=== PATIENT | male | born 1975 | race Two or more races ===

== ENCOUNTER 2023-01-14 21:40 | Emergency (ER) | payer MEDICAID, OTHER ==
[~2023-01-14] VITALS: Ht 167.6 cm; Wt 95.7 kg
[2023-01-14 23:29] LABS: Urine Bacteria NONE SEEN /hpf (None Seen); Urine Blood Negative /uL (Negative); Urine Specific Gravity 1.027 (1.001-1.035); Urine WBC 1 /hpf (0 - 3)
[2023-01-15 01:56] VITALS: BP 136/73
[2023-01-15] MEDS ORDERED: BACIOIN15 TOP (02:08)
[2023-01-15] MEDS ORDERED: CEPH-510 PO (02:08)
[2023-01-15] MEDS ORDERED: cefTRIAXone SOD 1,000 MG VL IM ONE (02:15)
== END 2023-01-15 03:05 | disposition home or self-care (01) ==
LOC: ER 21:47
DX: N47.6 Balanoposthitis (principal); Z88.0 Allergy status to penicillin
CPT/HCPCS: 81001

== ENCOUNTER 2023-03-14 19:46 | Emergency (ER) | payer MEDICAID ==
[~2023-03-14] VITALS: Ht 165.1 cm; Wt 90.4 kg
[~2023-03-14 19:46] MED LIST: BACIOIN15 TOP; CEPH-510 PO
[2023-03-14 21:23] LABS: Albumin 3.8 g/dL (3.4-5.0); Calcium 8.4 mg/dL (8.5-10.1); Potassium 3.9 mmol/L (3.5-5.1)
[2023-03-14 21:28] LABS: BUN/Creatinine Ratio 13.9 (10.0-20.0); Bilirubin, Total 0.9 mg/dL (0.2-1.0); Total Protein 7.8 g/dL (6.4-8.2)
[2023-03-14 21:39] LABS: Urine Bacteria NONE SEEN /hpf (None Seen); Urine Blood Negative /uL (Negative); Urine Mucus FEW (None Seen); Urine Specific Gravity 1.036 (1.001-1.035); Urine WBC 94 /hpf (0 - 3)
[2023-03-14 21:43] LABS: Basophils # (auto) 0.1 10 ^3/uL (0-0.2); Basophils % (auto) 0.3 % (0.0-2.0); Eosinophils # (auto) 0.1 10 ^3/uL (0-0.8); Eosinophils % (auto) 0.8 % (0.0-7.0); Hematocrit 42.8 % (41.0-53.0); Hemoglobin 14.6 g/dL (13.5-17.5); Lymphocytes # (auto) 1.7 10 ^3/uL (0.4-5.4); Lymphocytes % (auto) 9.4 % (10.0-50.0); Mean Corpuscular Hemoglobin 30.9 pg (28.0-32.0); Mean Corpuscular Hgb Conc. 34.2 g/dL (32.0-36.0); Mean Corpuscular Volume 90.2 fL (80.0-100.0); Monocytes # (auto) 1.7 10 ^3/uL (0-1.3); Monocytes % (auto) 9.3 % (0.0-12.0); Neutrophils # (auto) 14.6 10 ^3/uL (1.6-8.6); Neutrophils % (auto) 80.2 % (37.0-80.0); Nucleated Red Blood Cells % 0.2 %; Red Blood Cells 4.75 10^6/uL (4.5-5.90); Red Cell Distribution Width 12.8 % (11.8-14.3); White Blood Cell 18.2 10^3/uL (4.4-10.8)
[2023-03-14] MEDS ORDERED: CIPR-173 PO (21:47)
[2023-03-14 22:04] VITALS: BP 125/72; PULSE 68; RESP 18; TEMP 98.1; O2SAT 96
== END 2023-03-14 22:07 | disposition home or self-care (01) ==
LOC: ER 19:46
DX: N39.0 Urinary tract infection, site not specified (principal); Z88.0 Allergy status to penicillin; Z79.899 Other long term (current) drug therapy
CPT/HCPCS: 36415; 80053; 81001; 85025

== ENCOUNTER 2023-03-15 22:07 | Emergency (ER) | payer MEDICAID ==
[~2023-03-15] VITALS: Ht 167.6 cm; Wt 91.8 kg
[~2023-03-15 22:07] MED LIST changes: +CIPR-173 PO
[2023-03-16 00:06] VITALS: BP 115/72; PULSE 70; RESP 16; TEMP 99.8; O2SAT 97
[2023-03-16 01:07] LABS: Basophils # (auto) 0.1 10 ^3/uL (0-0.2); Basophils % (auto) 0.6 % (0.0-2.0); Eosinophils # (auto) 0.1 10 ^3/uL (0-0.8); Eosinophils % (auto) 0.6 % (0.0-7.0); Hematocrit 44.1 % (41.0-53.0); Lymphocytes # (auto) 1.6 10 ^3/uL (0.4-5.4); Mean Corpuscular Hemoglobin 30.9 pg (28.0-32.0); Mean Corpuscular Volume 90.7 fL (80.0-100.0); Monocytes % (auto) 10.2 % (0.0-12.0); Neutrophils % (auto) 80.6 % (37.0-80.0); Red Blood Cells 4.87 10^6/uL (4.5-5.90); Red Cell Distribution Width 12.9 % (11.8-14.3); White Blood Cell 19.8 10^3/uL (4.4-10.8)
[2023-03-16 01:24] LABS: Urine Bacteria NONE SEEN /hpf (None Seen); Urine Blood Negative /uL (Negative); Urine Mucus FEW (None Seen); Urine Specific Gravity 1.019 (1.001-1.035); Urine WBC 17 /hpf (0 - 3)
[2023-03-16 01:29] LABS: BUN/Creatinine Ratio 7.9 (10.0-20.0); Potassium 3.8 mmol/L (3.5-5.1)
[2023-03-16 01:32] LABS: Total Protein 8.5 g/dL (6.4-8.2)
[2023-03-16] MEDS ORDERED: SODIUM CHLORIDE 0.9% 2,000 ML IV ONE (01:45)
[2023-03-16] MEDS ORDERED: CEFTRIAXONE SODIUM 2 GM in D5W 5% 100 ML IV ONE (01:45)
[2023-03-16] MEDS ORDERED: AZITHROMYCIN 250 MG TAB PO ONE (03:45)
[2023-03-16] MEDS ORDERED: DOXY-286 PO (04:27)
[2023-03-16] MEDS ORDERED: PHEN-1045 PO (04:27)
== END 2023-03-16 04:59 | disposition home or self-care (01) ==
LOC: ER 22:07
DX: N39.0 Urinary tract infection, site not specified (principal); N49.0 Inflammatory disorders of seminal vesicle; K76.0 Fatty (change of) liver, not elsewhere classified; Z20.2 Contact with and (suspected) exposure to infections with a predominantly sexual mode of transmission; Z88.0 Allergy status to penicillin; Z79.899 Other long term (current) drug therapy
CPT/HCPCS: 36415; 74176; 80053; 81001; 83605; 85025; 87040; 87491; 87591; 96360; 96361; 99284; J0696; J7030; J7060

== ENCOUNTER 2024-01-09 21:25 | Emergency (ER) | payer MEDICAID ==
[~2024-01-09] VITALS: Ht 167.6 cm; Wt 82.2 kg
[~2024-01-09 21:25] MED LIST changes: +DOXY-286 PO; +PHEN-1045 PO
[2024-01-09 21:42] VITALS: BP 100/65; PULSE 71; RESP 18; TEMP 98; O2SAT 98
[2024-01-09 22:50] LABS: Urine Bacteria None Seen /hpf (None Seen)
[2024-01-09 22:58] LABS: Urine Blood Negative /uL (Negative); Urine Clarity Clear (Clear); Urine Color Yellow (Yellow); Urine Mucus FEW (None Seen); Urine Protein, UAD TRACE (Negative); Urine Urobilinogen 2 mg/dL (Negative); Urine WBC 1 /hpf (0 - 3); Urine pH 5.5 (5.0-9.0)
[2024-01-10] MEDS: diphenhdrAMINE HCL 25 MG CAP PO ONE
[2024-01-10] MEDS: cefTRIAXone SOD 500 MG VL IM ONE
[2024-01-10] MEDS ORDERED: TAMS-35 PO (00:45)
[2024-01-10] MEDS ORDERED: DOXY1CAP57 PO (00:45)
[2024-01-10] MEDS ORDERED: MUPI2OIN2 TOP (02:50)
== END 2024-01-10 00:58 | disposition home or self-care (01) ==
LOC: ER 21:25
DX: R39.11 Hesitancy of micturition (principal); R30.0 Dysuria; Z88.0 Allergy status to penicillin; Z79.899 Other long term (current) drug therapy
CPT/HCPCS: 81001; 87086; 96372; 99283; J0696

== ENCOUNTER 2025-02-04 14:50 | Inpatient (IN) | payer MEDICAID ==
[~2025-02-04] VITALS: Ht 165.1 cm; Wt 83.3 kg
[~2025-02-04 14:50] MED LIST changes: +DOXY1CAP57 PO; +MUPI2OIN2 TOP; +TAMS-35 PO
--- NOTE | 2025-02-04 15:54 | ED.PDOC ---
General HPI Comments HPI: Initial Vitals BP: 117/75 HR: 68 RR: 18 O2 Sat: 94% Past Medical history: Denies Past Surgical history: Denies Medications: Denies Social History: cigarettes Allergies: NKDA HPI: Poor Historian. 50-year-old male presents to emergency department for evaluation of UTI like symptoms that started yesterday. Patient states he had UTIs in the past and he started feeling the same symptoms yesterday. Patient states sensation of decr eased urination and some discomfort with the ablation. Patient had subjective fever. Denies any flank pain or any other acute symptoms. Patient feels better today. REVIEW OF SYSTEMS: CONSTITUTIONAL: Denies acute: diaphoresis, chills, generalized weakness. HEAD: Denies acute: headache, photophobia Eyes: Denies acute: Double vision, vision loss, eye pain, eye discharge. EARS: Denies acute: tinnitus, hearing loss, ear discharge, ear pain, THROAT: Denies acute: sore throat, swelling, difficulty swallowing , pain with swallowing, change in voice. NECK: Denies acute: neck pain, neck swelling, stiff neck. HEART: Denies acute : chest pain, palpitations, LUNGS: Denies acute: SOB, wheezing, cough, hemoptysis ABDOMEN: Denies acute: abdominal pain, Nausea, Vomiting, diarrhea, melena , hematemesis, hematochezia SKIN: Denies acute: rash, redness, lesions, itchiness. EXTREMITIES: Denies acute: calf pain, numbness, tingling, weakness, denies pain in extremity. Denies acute: Low back pain. Neuro: Denies acute: focal neurological deficit, motor or sensory focal neurological deficit, tremors, seizure like activity, confusion, dizziness, change in mental status, loss of bowel or bladder function, cauda equina like symptoms. : Denies acute: hematuria, flank pain, increase in urinary frequency. PSYCH: Denies acute: hallucination, suicidal ideation, homicidal ideation. PHYSICAL EXAM: General: -----mild---acute distress, awake and alert. Head: normocephalic, atraumatic. Neck: supple, trachea is midline, no swelling. Throat: Normal phonation. Eyes:, no erythema, no purulent discharge, no proptosis, no icterus. Heart: regular rate, regular rhythm, no significant murmur appreciated. Lungs: no apparent respiratory distress, Able to speak in full sentences. No wheezing, no rhonchi, no crackles. No stridors Clear to auscultation bilaterally. Abdomen: non tender to palpation, non distended, soft, no guarding, no rebound, + bowel sounds. Neuro: Awake, Alert, oriented to name, self, situation, follows commands GCS=15. Speech is normal. Skin: no petechia, no purpura, no cyanosis, non-pale, not jaundice. Lower extremities: --no - Pitting edema no deformity, no focal swelling, no calf TTP. Makes eye contact. moves all four extremities. Face: no apparent facial droop. Ambulating in the ED independently. ED COURSE: DISCLAIMER: This medical document was created using an electronic medical record system with voice recognition software and computerized dictation system. Although this document has been carefully reviewed, there might still be some phonetic and typographical errors. Occasional wrong-word or "sound-alike" substitutions may have occurred due to the inherent limitations of voice recognition software. These areas are purely typographical due to imperfections of the software p michael and do not reflect any compromise in the patient's medical care. Please read the chart carefully and recognize, using context, where these substitutions have occurred. Chief Complaint: Urinary Time Seen by MD: 15:45 Primary Care Provider: UNKNOWN Reviewed notes: Medications, Allergies Allergies: Coded Allergies: Penicillins (Verified Allergy, Unknown, 01/14/23) Home Meds Active Scripts Mupirocin (Pseudomonas Fluores (Mupirocin) 2 % Oin, 2 % TOP BID, #22 GRAMS Prov:LARRY RENEE VAMP MAKER 01/10/24 Tamsulosin Hcl (Flomax) 0.4 Mg Cap, 1 CAP PO DAILY, #30 CAP 0 Refills Prov:LARRY RENEE VAMP MAKER 01/10/24 Doxycycline Monohydrate (Doxycycline Monohydrate) 100 Mg Cap, 1 CAP PO BID for 7 Days, #14 CAP Prov:LARRY RENEE VAMP MAKER 01/10/24 Phenazopyridine HCl (Phenazopyridine Hydrochol) 200 Mg Tab, 1 TAB PO TID for 3 Days, #9 TAB Prov:MAC VALLECILLOA Q TRAUMA COUNSELLOR 03/16/23 Doxycycline Hyclate (DOXYCYCLINE HYCLATE) 100 Mg Tab, 1 TAB PO BID for 14 Days, #28 TAB Prov:VALLECILLOMADELINALDA Q TRAUMA COUNSELLOR 03/16/23 Ciprofloxacin Hcl (Cipro) 500 Mg Tab, 1 TAB PO BID, #20 TAB Prov:DAYRON NEUMANN MD 03/14/23 Cephalexin ( Keflex 500) 500 Mg Cap, 1 CAP PO BID for 7 Days, #14 CAP 0 Refills Prov:GENNARO DE LA ROSA 01/15/23 Bacitracin Base (Bacitracin) 500 Unit/Gm Oin, 500 UNIT TOP QIDP, #1 OIN 0 Refills Prov:GENNARO DE LA ROSA 01/15/23 Information Source: Patient Mode of Arrival: Ambulatory Severity: Moderate Timing: Days Duration: Since onset Prehospital treatment: None Onset: Spontaneous Symptoms: Dysuria History of: None Location: None Penile discharge: None Modifying factors: None associated signs and symptoms: Fever, Dysuria Past Medical History PAST MEDICAL HISTORY: Denies Surgical History: Denies all surgeries Family History Family History: Unknown Social History Smoker: Non-Smoker Alcohol: Denies ETOH Use Drugs: Denies Drug Use Lives In: Home Was a procedure done? Was a procedure done?: No Differential Diagnosis Kidney stone (Female): N/A Urinary Problem (Male): Bladder Outlet, Bladder Obstruction, Epididymitis, Prostatitis, Plelonephritis, Post op Complications, Renal Failure, Urethritis, Urinary Retention, Urolithiasis, UTI X-Ray, Labs, Meds, VS Vital Signs Date Time Temp Pulse Resp B/P (MAP) Pulse Ox O2 Delivery O2 Flow Rate FiO2 02/04/25 18:31 98.5 67 16 123/70 (87) 97 98.5 02/04/25 16:40 99.2 64 18 107/69 (82) 98 99.2 02/04/25 16:40 64 18 98 Room Air 02/04/25 15:00 98.3 68 18 117/75 (89) 94 98.3 Lab Test 02/04/25 18:30 02/04/25 15:35 Range/Units Urine Color Light-yellow Yellow Urine Clarity Clear Clear Urine pH 5.0 5.0-9.0 Urine Specific [place] 1.015 1.001-1.035 Urine Protein Negative Negative Urine Ketones Negative Negative Urine Blood Negative Negative /uL Urine Nitrite Negative Negative Urine Bilirubin Negative Negative Urine Urobilinogen Normal Negative mg/dL Urine Leukocyte Esterase 3+ Negative /uL Urine RBC 5 0 - 3 /hpf Urine Microscopic WBC 44 H 0-3 /HPF Urine Squamous Epithelial Cells Few <5 /hpf Urine Bacteria Few H None Seen /hpf Urine Mucus Few None Seen Urine Glucose Normal Normal mg/dL White Blood Count 17.2 H 4.4-10.8 10^3/uL Red Blood Count 5.13 4.5-5.90 10^6/uL Hemoglobin 15.6 13.5-17.5 g/dL Hematocrit 45.6 41.0-53.0 % Mean Corpuscular Volume 88.9 80.0-100.0 fL Mean Corpuscular Hemoglobin 30.5 28.0-32.0 pg Mean Corpuscular Hemoglobin Concent 34.3 32.0-36.0 g/dL Red Cell Distribution Width 12.9 11.8-14.3 % Platelet Count 292 140-450 10^3/uL Mean Platelet Volume 7.0 6.9-10.8 fL Neutrophils (%) (Auto) 79.5 37.0-80.0 % Lymphocytes (%) (Auto) 9.2 L 10.0-50.0 % Monocytes (%) (Auto) 10.3 0.0-12.0 % Eosinophils (%) (Auto) 0.6 0.0-7.0 % Basophils (%) (Auto) 0.4 0.0-2.0 % Neutrophils # (Auto) 13.6 H 1.6-8.6 10 ^3/uL Lymphocytes # (Auto) 1.6 0.4-5.4 10 ^3/uL Monocytes # (Auto) 1.8 H 0-1.3 10 ^3/uL Eosinophils # (Auto) 0.1 0-0.8 10 ^3/uL Basophils # (Auto) 0.1 0-0.2 10 ^3/uL Nucleated Red Blood Cells 0.0 % Sodium Level 138 136-145 mmol/L Potassium Level 4.3 3.5-5.1 mmol/L Chloride Level 102 98-107 mmol/L Carbon Dioxide Level 28 20-31 mmol/L Anion Gap 8 5-15 Blood Urea Nitrogen 14 9-23 mg/dL Creatinine 1.00 0.700-1.30 mg/dL Glomerular Filtration Rate Calc 92 >90 mL/min BUN/Creatinine Ratio 14.0 10.0-20.0 Serum Glucose 100 74-106 mg/dL Lactic Acid Level 1.4 0.4-2.0 mmol/L Calcium Level 9.8 8.7-10.4 mg/dL Total Bilirubin 1.2 H 0.2-1.0 mg/dL Aspartate Amino Transferase (AST) 20 <34 U/L Alanine Aminotransferase (ALT) 18 7-40 U/L Alkaline Phosphatase 73 46-116 U/L Total Protein 7.4 5.7-8.2 g/dL Albumin 4.7 3.2-4.8 g/dL Current Medications Medications (Trade) Dose Ordered Sig/Raimundo Route Start Time Stop Time Status Last Admin Sodium Chloride 1,000 ml @ 1,000 mls/hr Q1H ONCE IV 02/04/25 15:30 02/04/25 16:29 DC 02/04/25 16:50 Ceftriaxone Sodium 50 ml @ 100 mls/hr ONCE ONCE IV 02/04/25 17:00 02/04/25 17:29 DC 02/04/25 16:57 Time of 1ST Reevaluation: 16:15 Reevaluation 1ST: Unchanged Time of 2ND Reevaluation: 18:28 (Patient at this time said that he already submitted the urine sample awhile ago. I called the lab upstairs and they said do not have any urine sample by his name. I asked him to provide another urine sample which is still pending) Patient Education/Counseling: Diagnosis, Treatment Family Education/Counseling: No Family Present Comments Patient presented with the above HPI.---UTI---workup was initiated. patient was found with the above mentioned diagnosis. the following medications were ordered: please refer to order lists of meds and tests obtained by myself Dr. Daugherty. Patient ED course and VS have been stabilized. Patient has been reassessed in the ED and remained in a stable condition. Pertinent incidental findings were discussed with the patient and/or family. Patient/family voices understanding and is agreeable with plan. Patient has been observed in the ED adequate length of time to insure improvement/stability. Escalation of care considered: Consideration of escalation to observation or admission Patient had leukocytosis of 17. Sepsis protocol was initiated with weight based fluid resuscitation. Patient was ADMITTED to the medicine team for further evaluation and treatment of their presentation. All the reports of any imaging studies that were ordered by myself were reviewed by myself. Departure 1 Departure Time of Disposition: 15:57 Impression: Primary Impression: Sepsis secondary to UTI Additional Impression: Leukocytosis Disposition: ADMITTED INPATIENT Admit to: Tele Condition: Guarded Discharged With: Self Critical Care Note Critical Care Time?: Yes (35 min-critical care time only) I personally scribed for BRANDI DAUGHERTY DO ([email or web address]) on 02/04/25 at 15:54. Electronically submitted by Swetha Orta ([email or web address]). BRANDI DAUGHERTY DO Feb 04, 2025 15:54
[2025-02-04 15:57] LABS: Basophils # (auto) 0.1 10 ^3/uL (0-0.2); Basophils % (auto) 0.4 % (0.0-2.0); Eosinophils # (auto) 0.1 10 ^3/uL (0-0.8); Eosinophils % (auto) 0.6 % (0.0-7.0); Hematocrit 45.6 % (41.0-53.0); Hemoglobin 15.6 g/dL (13.5-17.5); Lymphocytes # (auto) 1.6 10 ^3/uL (0.4-5.4); Lymphocytes % (auto) 9.2 % (10.0-50.0); Mean Corpuscular Hemoglobin 30.5 pg (28.0-32.0); Mean Corpuscular Hgb Conc. 34.3 g/dL (32.0-36.0); Mean Corpuscular Volume 88.9 fL (80.0-100.0); Monocytes # (auto) 1.8 10 ^3/uL (0-1.3); Monocytes % (auto) 10.3 % (0.0-12.0); Neutrophils # (auto) 13.6 10 ^3/uL (1.6-8.6); Neutrophils % (auto) 79.5 % (37.0-80.0); Platelet Count (auto) 292 10^3/uL (140-450); Red Blood Cells 5.13 10^6/uL (4.5-5.90); Red Cell Distribution Width 12.9 % (11.8-14.3); White Blood Cell 17.2 10^3/uL (4.4-10.8)
[2025-02-04 16:13] LABS: Alanine Aminotransferase 18 U/L (7-40); Albumin 4.7 g/dL (3.2-4.8); Alkaline Phosphatase 73 U/L (46-116); Anion Gap 8 (5-15); Aspartate Aminotransferase 20 U/L (<34); Bilirubin, Total 1.2 mg/dL (0.2-1.0); Blood Urea Nitrogen 14 mg/dL (9-23); Calcium 9.8 mg/dL (8.7-10.4); Carbon Dioxide 28 mmol/L (20-31); Chloride 102 mmol/L (98-107); Glucose 100 mg/dL (74-106); Potassium 4.3 mmol/L (3.5-5.1); Sodium 138 mmol/L (136-145); Total Protein 7.4 g/dL (5.7-8.2)
[2025-02-04] MEDS ORDERED: cefTRIAXone 1GM/50ML D5W 50 ML IV ONE (16:30)
[2025-02-04] MEDS: SODIUM CHLORIDE 0.9% 1,000 ML IV ONE (16:50)
[2025-02-04] MEDS: cefTRIAXone 1GM/50ML D5W 50 ML IV ONE (16:57)
[2025-02-04 19:00] LABS: Urine Bacteria FEW /hpf (None Seen); Urine Blood Negative /uL (Negative); Urine Clarity Clear (Clear); Urine Color Light-Yellow (Yellow); Urine Mucus FEW (None Seen); Urine Protein, UAD Negative (Negative); Urine Specific Gravity 1.015 (1.001-1.035); Urine Squamous Epithelial Cell FEW /hpf (<5); Urine Urobilinogen Normal (Negative); Urine WBC 44 /HPF (0-3)
[2025-02-04] MEDS ORDERED: DOCUSATE SOD 100 MG CAP PO PRN (22:15)
[2025-02-04] MEDS ORDERED: NITROGLYCERIN 0.4 MG SL TAB SL PRN (23:30)
--- NOTE | 2025-02-04 23:32 | DVHHP2 ---
History of Present Illness Reason for Visit: Sepsis secondary to UTI History of Present Illness The patient is a 50-year-old male with past medical history of UTI presented to [facility] ED for evaluation of dysuria. Patient reports experiencing symptoms of decreased urination, abdominal discomfort, subjective fever, getting worse that prompted this visit. Patient was seen and evaluated in the ED, laboratory data shows WBC 17.2, platelets 292, sodium 138, potassium 4.3, BUN 14, creatinine 1.00, glucose 100, total bilirubin 1.2, blood pressure 120/70, heart rate 78, temperature 99.7 F, O2 saturation 96% on room air. Urinalysis positive for urinary tract infection. Patient was started on IV antibiotic regimen Rocephin, please see medication orders section in the computer. On my assessment, patient denied chest pain, no headache, no dizziness, no shortness of breath, no abdominal pain, no nausea, no vomiting, no fever, no chills. Patient was admitted for further evaluation and medical management. Past Medical History UTIs Past Surgical History Denies all surgeries Family History Reviewed, noncontributory to the management of this case. Past Social History The patient lives at home, smokes cigarettes, denies alcohol or illicit drugs abuse. Review of Systems Constitutional: Yes: Weakness; No: Fever, Chills, Sweats, Malaise, Other Eyes: No: Pain, Vision change, Conjunctivae inflammation, Eyelid inflammation, Other, Redness ENT: No: Ear pain, Ear discharge, Nose pain, Nose discharge, Nose congestion, Mouth pain, Mouth swelling, Throat pain, Throat swelling, Other Respiratory: No: Cough, Dry, Shortness of breath, SOB with excertion, Wheezing, Hemoptysis, Pleuritic Pain, Sputum, Wheezing, Other Cardiovascular: No: Chest Pain, Palpitations, Orthopnea, Paroxysmal Noc. Dyspnea, Edema, Lt Headedness, Other Gastrointestinal: No: Nausea, Vomiting, Abdominal Pain, Diarrhea, Constipation, Melena, Hematochezia, Other Genitourinary: Dysuria; No Frequency, No Incontinence, No Hematuria, No Retention, No Other Musculoskeletal: No: other, neck pain, shoulder pain, arm pain, back pain, hand pain, leg pain, foot pain Skin: No: Rash, Lesions, Jaundice, Bruising, Other Neurological: No: Weakness, Numbness, Incoordination, Change in speech, Confusion, Seizures, Other Allergies: Coded Allergies: Penicillins (Verified Allergy, Unknown, 01/14/23) Medications Current Medications Medications Dose Ordered Sig/Raimundo Route Start Time Stop Time Status Last Admin Dose Admin Ceftriaxone Sodium 50 ml @ 100 mls/hr DAILY@09 IV 02/05/25 09:00 Sodium Chloride 1,000 ml @ 60 mls/hr [id number] IV 02/04/25 22:15 Acetaminophen/ Hydrocodone Bitart 1 tab Q4HP PRN PO 02/04/25 22:15 Ondansetron HCl 4 mg Q4HP PRN IV 02/04/25 22:15 Docusate Sodium 100 mg BIDPRN PRN PO 02/04/25 22:15 Acetaminophen 650 mg Q6HP PRN PO 02/04/25 22:15 Exam Vital Signs Vital Signs Date Time Temp Pulse Resp B/P (MAP) Pulse Ox O2 Delivery O2 Flow Rate FiO2 02/04/25 21:11 99.7 78 18 119/71 (87) 96 99.7 02/04/25 16:40 Room Air General Appearance: Alert, Oriented X3, Cooperative, No acute distress HEENT: Atraumatic, PERRLA, EOMI, Mucous membr. moist/pink Respiratory: Clear to auscultation, Normal air movement Cardiovascular: Regular rate, Normal S1, Normal S2, No murmurs Abdominal: Normal bowel sounds, Soft, No tenderness, No hepatospenomegaly, No masses Extremities: No clubbing, No cyanosis, No edema, Normal pulses, No tenderness/swelling Skin: No rashes, No breakdown, No significant lesion Neuro: Normal gait, Normal speech, Strength at 5/5 X4 ext, Normal tone, Sensation intact, Cranial nerves 3-12 NL, Reflexes 2+ Psych/Mental Status: Mental status NL, Mood NL Labs/Xrays Labs Test 02/04/25 18:30 02/04/25 15:35 Range/Units Urine Color Light-yellow Yellow Urine Clarity Clear Clear Urine pH 5.0 5.0-9.0 Urine Specific [place] 1.015 1.001-1.035 Urine Protein Negative Negative Urine Ketones Negative Negative Urine Blood Negative Negative /uL Urine Nitrite Negative Negative Urine Bilirubin Negative Negative Urine Urobilinogen Normal Negative mg/dL Urine Leukocyte Esterase 3+ Negative /uL Urine RBC 5 0 - 3 /hpf Urine Microscopic WBC 44 H 0-3 /HPF Urine Squamous Epithelial Cells Few <5 /hpf Urine Bacteria Few H None Seen /hpf Urine Mucus Few None Seen Urine Glucose Normal Normal mg/dL White Blood Count 17.2 H 4.4-10.8 10^3/uL Red Blood Count 5.13 4.5-5.90 10^6/uL Hemoglobin 15.6 13.5-17.5 g/dL Hematocrit 45.6 41.0-53.0 % Mean Corpuscular Volume 88.9 80.0-100.0 fL Mean Corpuscular Hemoglobin 30.5 28.0-32.0 pg Mean Corpuscular Hemoglobin Concent 34.3 32.0-36.0 g/dL Red Cell Distribution Width 12.9 11.8-14.3 % Platelet Count 292 140-450 10^3/uL Mean Platelet Volume 7.0 6.9-10.8 fL Neutrophils (%) (Auto) 79.5 37.0-80.0 % Lymphocytes (%) (Auto) 9.2 L 10.0-50.0 % Monocytes (%) (Auto) 10.3 0.0-12.0 % Eosinophils (%) (Auto) 0.6 0.0-7.0 % Basophils (%) (Auto) 0.4 0.0-2.0 % Neutrophils # (Auto) 13.6 H 1.6-8.6 10 ^3/uL Lymphocytes # (Auto) 1.6 0.4-5.4 10 ^3/uL Monocytes # (Auto) 1.8 H 0-1.3 10 ^3/uL Eosinophils # (Auto) 0.1 0-0.8 10 ^3/uL Basophils # (Auto) 0.1 0-0.2 10 ^3/uL Nucleated Red Blood Cells 0.0 % Sodium Level 138 136-145 mmol/L Potassium Level 4.3 3.5-5.1 mmol/L Chloride Level 102 98-107 mmol/L Carbon Dioxide Level 28 20-31 mmol/L Anion Gap 8 5-15 Blood Urea Nitrogen 14 9-23 mg/dL Creatinine 1.00 0.700-1.30 mg/dL Glomerular Filtration Rate Calc 92 >90 mL/min BUN/Creatinine Ratio 14.0 10.0-20.0 Serum Glucose 100 74-106 mg/dL Lactic Acid Level 1.4 0.4-2.0 mmol/L Calcium Level 9.8 8.7-10.4 mg/dL Total Bilirubin 1.2 H 0.2-1.0 mg/dL Aspartate Amino Transferase (AST) 20 <34 U/L Alanine Aminotransferase (ALT) 18 7-40 U/L Alkaline Phosphatase 73 46-116 U/L Total Protein 7.4 5.7-8.2 g/dL Albumin 4.7 3.2-4.8 g/dL Assessment/Plan Assessment/Plan Sepsis secondary to UTI Leukocytosis, unspecified Plan 1. Admit to med surge unit 2. Breathing treatment 3. Pain control management 4. IV antibiotic management 5. Management of fluids and electrolytes 6. Consultation for hospitalist 7. Diagnostic test chest x-ray 8. DVT prophylaxis-on SCDs 9. Repeat labs CBC, CMP in a.m. 10. Continue with current medical management 11. Treatment plan discussed with patient and RN. Patient verbalized understanding. Plan discussed with: Patient, Other (RN) My Orders Orders - BIPIN MCGOWAN DNP Procedure Category Date Status Time Ceftriaxone 1gm/50ml PHA 02/05/25 In Process D5w (Rocephin) 09:00 Urine Bacterial NATALYA 02/04/25 In Process Culture 22:05 Allergies SIXTO 02/04/25 In Process 22:05 Code Status CODE 02/04/25 Transmitted 22:05 2 Gm Sodium Diet DIET 02/05/25 Transmitted Breakfast Sodium Chloride 0.9% PHA 02/04/25 In Process 22:15 Oxygen Per Hour RT 02/04/25 Transmitted 22:05 Hydrocodone-Acet PHA 02/04/25 In Process 5/325mg Tab ([place] 22:15 Ondansetron Hcl PHA 02/04/25 In Process (Zofran) 22:15 Docusate Sodium PHA 02/04/25 In Process Capsule (Colace 22:15 Complete Blood Count LAB 02/05/25 Verified 04:00 Comprehensive LAB 02/05/25 Verified Metabolic Panel 04:00 Condition: Serious SIXTO 02/04/25 In Process 22:05 Acetaminophen Tablet PHA 02/04/25 In Process (Tylenol Tablet) 22:15 Bedrest With Bathroom SIXTO 02/04/25 In Process Privileg 22:05 Sequential SIXTO 02/04/25 In Process Compression Device Problem List: (1) Sepsis secondary to UTI (2) Leukocytosis, unspecified Date of Service: Feb 04, 2025 Billing Provider: BIPIN MCGOWAN DNP Common Visit Codes: [id number] INP/OBS CARE (HIGH) BIPIN MCGOWAN DNP Feb 04, 2025 23:32
[2025-02-05] MEDS: HYDROcodone-ACET 5/325MG TAB PO PRN (03:46)
[2025-02-05] MEDS: ACETAMINOPHEN 325 MG TAB PO PRN (03:46)
[2025-02-05] MEDS: ONDANSETRON HCL 4 MG/2 ML VIAL IV PRN (03:49)
[2025-02-05] MEDS: MORPHINE SULFATE INJ 2 MG/ml SYRG IV PRN (03:52)
[2025-02-05 05:32] LABS: Basophils # (auto) 0 10 ^3/uL (0-0.2); Basophils % (auto) 0.2 % (0.0-2.0); Eosinophils # (auto) 0.1 10 ^3/uL (0-0.8); Eosinophils % (auto) 0.7 % (0.0-7.0); Hematocrit 41.2 % (41.0-53.0); Hemoglobin 14.1 g/dL (13.5-17.5); Lymphocytes # (auto) 1.8 10 ^3/uL (0.4-5.4); Lymphocytes % (auto) 8.9 % (10.0-50.0); Mean Corpuscular Hemoglobin 30.7 pg (28.0-32.0); Mean Corpuscular Hgb Conc. 34.3 g/dL (32.0-36.0); Mean Corpuscular Volume 89.5 fL (80.0-100.0); Monocytes # (auto) 2.3 10 ^3/uL (0-1.3); Monocytes % (auto) 11.5 % (0.0-12.0); Neutrophils # (auto) 15.6 10 ^3/uL (1.6-8.6); Neutrophils % (auto) 78.7 % (37.0-80.0); Nucleated Red Blood Cells % 0.1 %; Platelet Count (auto) 272 10^3/uL (140-450); White Blood Cell 19.8 10^3/uL (4.4-10.8)
[2025-02-05 05:45] LABS: Alanine Aminotransferase 16 U/L (7-40); Albumin 4.5 g/dL (3.2-4.8); Alkaline Phosphatase 77 U/L (46-116); Anion Gap 9 (5-15); Aspartate Aminotransferase 15 U/L (<34); BUN/Creatinine Ratio 16.5 (10.0-20.0); Blood Urea Nitrogen 15 mg/dL (9-23); Calcium 9.5 mg/dL (8.7-10.4); Carbon Dioxide 26 mmol/L (20-31); Chloride 106 mmol/L (98-107); Potassium 3.9 mmol/L (3.5-5.1); Sodium 141 mmol/L (136-145); Total Protein 7.3 g/dL (5.7-8.2)
[2025-02-05 05:46] LABS: Bilirubin, Total 0.6 mg/dL (0.2-1.0)
[2025-02-05 05:49] LABS: Glucose 117 mg/dL (74-106)
[2025-02-05] MEDS ORDERED: ACET-1304 PO (05:52)
[2025-02-05 05:53] VITALS: BP 98/50; PULSE 61; RESP 18; TEMP 99.1; O2SAT 61
[2025-02-05] MEDS: SODIUM CHLORIDE 0.9% 1,000 ML IV SCH (07:55)
[2025-02-05] MEDS: cefTRIAXone 1GM/50ML D5W 50 ML IV SCH (09:25)
[2025-02-05 09:33] VITALS: BP 102/61; PULSE 57; RESP 12; TEMP 97.8; O2SAT 95
[2025-02-05 13:16] VITALS: BP 112/83; PULSE 60; RESP 18; TEMP 98.2; O2SAT 95
[2025-02-05 18:15] VITALS: BP 119/65; PULSE 50; RESP 14; TEMP 97.8; O2SAT 99
--- NOTE | 2025-02-05 18:51 | DVHPN2 ---
Subjective Patient is currently denies any dysuria hematuria, abdominal pain is better. Reviewed: Care Plan Changes from previous H/P or p: No Changes Eyes: No Pain, No Vision change, No Conjunctivae inflammation, No Eyelid inflammation, No Other, No Redness ENT: No Ear pain, No Ear discharge, No Nose pain, No Nose discharge, No Nose congestion, No Mouth pain, No Mouth swelling, No Throat pain, No Throat swelling, No Other Cardiovascular: No Chest Pain, No Palpitations, No Orthopnea, No Paroxysmal Noc. Dyspnea, No Edema, No Lt Headedness, No Other Respiratory: No Cough, No Dry, No Shortness of breath, No SOB with excertion, No Wheezing, No Hemoptysis, No Pleuritic Pain, No Sputum, No Other Gastrointestinal: No Nausea, No Vomiting, No Abdominal Pain, No Diarrhea, No Constipation, No Melena, No Hematochezia, No Other Genitourinary: Dysuria; No Frequency, No Incontinence, No Hematuria, No Retention, No Other Musculoskeletal: No other, No neck pain, No shoulder pain, No arm pain, No back pain, No hand pain, No leg pain, No foot pain Skin: No Rash, No Lesions, No Jaundice, No Bruising, No Other Objective Vitals Vital Signs Date Time Temp Pulse Resp B/P (MAP) Pulse Ox O2 Delivery O2 Flow Rate FiO2 02/05/25 18:15 97.8 50 14 119/65 (83) 99 97.8 02/04/25 16:40 Room Air Intake/Output Intake and Output 02/05/25 07:00 Intake Total 1050 ml Balance 1050 ml IV Total 1050 ml Exam HEENT pupils are reactive Neck is supple CV is S1-S2 regular rate and rhythm Respiratory are clear GI positive bowel sound Extremity no edema 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4 mg Q5MINP PRN SL 02/04/25 23:30 Morphine Sulfate 2 mg Q30M PRN IV 02/04/25 23:30 02/05/25 03:52 2 MG Laboratory Results Laboratory Tests 02/05/25 04:54 Chemistry Test 02/05/25 04:54 Albumin 4.5 g/dL (3.2-4.8) Calcium Level 9.5 mg/dL (8.7-10.4) Total Protein 7.3 g/dL (5.7-8.2) LFT Test 02/05/25 04:54 Alanine Aminotransferase (ALT) 16 U/L (7-40) Alkaline Phosphatase 77 U/L (46-116) Aspartate Amino Transferase (AST) 15 U/L (<34) Total Bilirubin 0.6 mg/dL (0.2-1.0) Urinalysis Test 02/04/25 18:30 Urine Color Light-yellow (Yellow) Urine Clarity Clear (Clear) Urine pH 5.0 (5.0-9.0) Urine Specific [place] 1.015 (1.001-1.035) Urine Protein Negative (Negative) Urine Ketones Negative (Negative) Urine Blood Negative /uL (Negative) Urine Nitrite Negative (Negative) Urine Bilirubin Negative (Negative) Urine Urobilinogen Normal mg/dL (Negative) Urine Leukocyte Esterase 3+ /uL (Negative) Urine RBC 5 /hpf (0 - 3) Urine Microscopic WBC 44 /HPF (0-3) H Urine Squamous Epithelial Cells Few /hpf (<5) Urine Bacteria Few /hpf (None Seen) H Urine Mucus Few (None Seen) Urine Glucose Normal mg/dL (Normal) Microbiology Microbiology Date/Time Source Procedure Growth Status 02/04/25 18:30 Voided Urine Urine Culture - Preliminary Resulted 02/04/25 16:35 Blood Blood Culture - Preliminary NO GROWTH AFTER 24 HOURS OF INCUBATION. Resulted Assessment/Plan Assessment/Plan 80-year-old male with a previous history of UTI presented to the hospital with a evaluation of dysuria, decrease in urination and abdominal discomfort found to have 1. Sepsis secondary to UTI 2. Urinary tract infection 3. Leukocytosis -IV antibiotics, discharge plan in next 24 hours. Plan discussed with: Patient Date of Service: Feb 05, 2025 Billing Provider: TRINY DUMONT MD Common Visit Codes: [id number] INP/OBS CARE(MOD) TRINY DUMONT MD Feb 05, 2025 18:51
[2025-02-05 21:00] VITALS: BP 92/62; PULSE 76; TEMP 98.1; O2SAT 98
[2025-02-05 22:22] VITALS: BP 122/84; PULSE 55; RESP 18; TEMP 97.6; O2SAT 99
[2025-02-06 01:00] VITALS: BP 127/85; PULSE 54; RESP 17; TEMP 98.7; O2SAT 97
[2025-02-06 04:51] VITALS: BP 118/80; PULSE 60; RESP 18; TEMP 98; O2SAT 95
[2025-02-06 08:41] VITALS: BP 116/81; PULSE 58; RESP 20; TEMP 97.6; O2SAT 98
[2025-02-06 12:38] VITALS: BP 107/69; PULSE 61; RESP 19; TEMP 96.7; O2SAT 99
[2025-02-06 13:43] LABS: Basophils # (auto) 0.1 10 ^3/uL (0-0.2); Basophils % (auto) 0.9 % (0.0-2.0); Eosinophils # (auto) 0.2 10 ^3/uL (0-0.8); Eosinophils % (auto) 3.4 % (0.0-7.0); Hematocrit 43.8 % (41.0-53.0); Hemoglobin 14.9 g/dL (13.5-17.5); Lymphocytes # (auto) 1.5 10 ^3/uL (0.4-5.4); Lymphocytes % (auto) 21.1 % (10.0-50.0); Mean Corpuscular Hemoglobin 30.6 pg (28.0-32.0); Mean Corpuscular Volume 90.1 fL (80.0-100.0); Monocytes # (auto) 0.8 10 ^3/uL (0-1.3); Monocytes % (auto) 10.7 % (0.0-12.0); Neutrophils # (auto) 4.5 10 ^3/uL (1.6-8.6); Neutrophils % (auto) 63.9 % (37.0-80.0); Platelet Count (auto) 298 10^3/uL (140-450); Red Blood Cells 4.86 10^6/uL (4.5-5.90); Red Cell Distribution Width 12.7 % (11.8-14.3)
[2025-02-06 13:55] LABS: Chloride 106 mmol/L (98-107); Potassium 3.9 mmol/L (3.5-5.1)
[2025-02-06 13:56] LABS: Anion Gap 8 (5-15); Calcium 10.1 mg/dL (8.7-10.4)
[2025-02-06 14:01] LABS: BUN/Creatinine Ratio 15.6 (10.0-20.0); Blood Urea Nitrogen 15 mg/dL (9-23); Carbon Dioxide 31 mmol/L (20-31); Glucose 82 mg/dL (74-106); Sodium 145 mmol/L (136-145)
[2025-02-06] MEDS ORDERED: CEPH500C PO (15:10)
--- NOTE | 2025-02-06 15:13 | DVHDS2 ---
Discharge Summary Date of Admission Feb 04, 2025 at 23:32 Date of Discharge: Feb 06, 2025 Labs/Diagnostic Data: Laboratory Results Test 02/06/25 13:20 02/05/25 04:54 02/04/25 18:30 02/04/25 15:35 White Blood Count 7.0 10^3/uL (4.4-10.8) Red Blood Count 4.86 10^6/uL (4.5-5.90) Hemoglobin 14.9 g/dL (13.5-17.5) Hematocrit 43.8 % (41.0-53.0) Mean Corpuscular Volume 90.1 fL (80.0-100.0) Mean Corpuscular Hemoglobin 30.6 pg (28.0-32.0) Mean Corpuscular Hemoglobin Concent 34.0 g/dL (32.0-36.0) Red Cell Distribution Width 12.7 % (11.8-14.3) Platelet Count 298 10^3/uL (140-450) Mean Platelet Volume 7.0 fL (6.9-10.8) Neutrophils (%) (Auto) 63.9 % (37.0-80.0) Lymphocytes (%) (Auto) 21.1 % (10.0-50.0) Monocytes (%) (Auto) 10.7 % (0.0-12.0) Eosinophils (%) (Auto) 3.4 % (0.0-7.0) Basophils (%) (Auto) 0.9 % (0.0-2.0) Neutrophils # (Auto) 4.5 10 ^3/uL (1.6-8.6) Lymphocytes # (Auto) 1.5 10 ^3/uL (0.4-5.4) Monocytes # (Auto) 0.8 10 ^3/uL (0-1.3) Eosinophils # (Auto) 0.2 10 ^3/uL (0-0.8) Basophils # (Auto) 0.1 10 ^3/uL (0-0.2) Nucleated Red Blood Cells 0.0 % Sodium Level 145 mmol/L (136-145) Potassium Level 3.9 mmol/L (3.5-5.1) Chloride Level 106 mmol/L (98-107) Carbon Dioxide Level 31 mmol/L (20-31) Anion Gap 8 (5-15) Blood Urea Nitrogen 15 mg/dL (9-23) Creatinine 0.96 mg/dL (0.700-1.30) Glomerular Filtration Rate Calc 97 mL/min (>90) BUN/Creatinine Ratio 15.6 (10.0-20.0) Serum Glucose 82 mg/dL (74-106) Calcium Level 10.1 mg/dL (8.7-10.4) Total Bilirubin 0.6 mg/dL (0.2-1.0) Aspartate Amino Transferase (AST) 15 U/L (<34) Alanine Aminotransferase (ALT) 16 U/L (7-40) Alkaline Phosphatase 77 U/L (46-116) Total Protein 7.3 g/dL (5.7-8.2) Albumin 4.5 g/dL (3.2-4.8) Urine Color Light-yellow (Yellow) Urine Clarity Clear (Clear) Urine pH 5.0 (5.0-9.0) Urine Specific Myton 1.015 (1.001-1.035) Urine Protein Negative (Negative) Urine Ketones Negative (Negative) Urine Blood Negative /uL (Negative) Urine Nitrite Negative (Negative) Urine Bilirubin Negative (Negative) Urine Urobilinogen Normal mg/dL (Negative) Urine Leukocyte Esterase 3+ /uL (Negative) Urine RBC 5 /hpf (0 - 3) Urine Microscopic WBC 44 /HPF (0-3) Urine Squamous Epithelial Cells Few /hpf (<5) Urine Bacteria Few /hpf (None Seen) Urine Mucus Few (None Seen) Urine Glucose Normal mg/dL (Normal) Lactic Acid Level 1.4 mmol/L (0.4-2.0) Other Laboratory Tests 02/06/25 13:20 Brief Hx & Hospital Course: 80-year-old male with a previous history of UTI presented to the hospital with a evaluation of dysuria, decrease in urination and abdominal discomfort found to have sepsis secondary to UTI. Patient has UTI was treated with the IV antibiotics. Patient will be switched to p.o. antibiotics upon discharge. Patient's WBC count trended down. Patient is currently afebrile and requesting to go home. Patient is being discharged under stable condition. Condition at Discharge: Stable Final Diagnosis/Problems List 80-year-old male with a previous history of UTI presented to the hospital with a evaluation of dysuria, decrease in urination and abdominal discomfort found to have 1. Sepsis secondary to UTI 2. Urinary tract infection 3. Leukocytosis Discharge Disposition: Home SNF Discharge Will this Physician continue t: No Discharge Instruct/Medications Diet: Cardiac 2g Na,low cholest Activity: No Restrictions, As Tolerated Follow Up/Referral: Follow up with the PCP in 1-2 weeks Medications: Keflex as prescribed Discharge Statement: "Patient was advised to return to the ER or call 911 if any headaches, dizziness, shortness of breath, chest pain, abdominal pain, bleeding, fevers, or worsening of medical condition. Patient was counseled about treatment plan, medications, possible side effects, patientverbalized understanding. All questions were answered to the best of my ability. This discharge took greater then 30 minutes in planning, reviewing documentation, counseling the patient, and discussing with other team members." ASSESSMENT ASSESSMENT Assessment 80-year-old male with a previous history of UTI presented to the hospital with a evaluation of dysuria, decrease in urination and abdominal discomfort found to have 1. Sepsis secondary to UTI 2. Urinary tract infection 3. Leukocytosis Date of Service: Feb 06, 2025 Billing Provider: TRINY DUMONT MD Common Visit Codes: 97310-TJY/OBS DISCH DAY >30min TRINY DUMONT MD Feb 06, 2025 15:13
[2025-02-06 17:19] VITALS: BP 105/70; PULSE 61; RESP 21; TEMP 97.4; O2SAT 97
[2025-02-06] MEDS: CEPHALEXIN 250 MG CAP PO ONE (17:23)
== END 2025-02-06 17:50 | disposition home or self-care (01) | DRG 720 ==
LOC: ER 14:50 → OVERFLOW 23:32 → WEST WING 02-05 22:22
PROVIDERS: ADMIT Nurse Practitioner Family; ATTEND Nurse Practitioner Family
DX: A41.9 Sepsis, unspecified organism (principal); F17.210 Nicotine dependence, cigarettes, uncomplicated; N39.0 Urinary tract infection, site not specified; Z88.0 Allergy status to penicillin
CPT/HCPCS: 36415; 80048; 80053; 81001; 83605; 85025; 87040; 87086; 96365; 99291; G0378; J2405